=== PATIENT | male | born 2000 | race Caucasian/White ===

== ENCOUNTER 2021-08-03 06:28 | Observation (INO) | payer SELFPAY ==
[2021-08-03] VITALS (23 sets, daily range): BP systolic 115–140; BP diastolic 60–90; PULSE 52–88; RESP 12–20; TEMP 36.3–36.9; O2SAT 96–100; BMI 22.9
--- NOTE | 2021-08-03 06:54 | CTR_ITS ---
PROCEDURE INFORMATION: Exam: CT Abdomen And Pelvis With Contrast Exam date and time: 08/03/2021 7:23 AM Age: 21 years old Clinical indication: Abdominal pain; Localized; Lower; Additional info: Abd pain TECHNIQUE: Imaging protocol: Computed tomography of the abdomen and pelvis with contrast. Radiation optimization: All CT scans at this facility use at least one of these dose optimization techniques: automated exposure control; mA and/or kV adjustment per patient size (includes targeted exams where dose is matched to clinical indication); or iterative reconstruction. Contrast material: OMNI 350; Contrast volume: 75 ml; Contrast route: INTRAVENOUS (IV); COMPARISON: CT abdomen pelvis w con* [id number] 07/29/2018 9:59 PM RADIATION DOSE METRICS: Total DLP (mGy-cm): 717.93 FINDINGS: Lungs: No acute airspace or pleural disease. Liver: No focal hepatic mass. Gallbladder and bile ducts: Unremarkable gallbladder. Pancreas: No pancreatic mass or ductal dilatation. Spleen: Spleen upper limits of normal size. Adrenal glands: Unremarkable adrenals. Kidneys and ureters: Normal renal morphology. No hydronephrosis. Stomach and bowel: Mild small bowel dilatation without a transition zone. Prominent stool. Appendix: Enlarged appendix measuring 12 mm in diameter with wall thickening and mild infiltration of periappendiceal fat, in a pattern of appendicitis. Intraperitoneal space: No significant free fluid. Vasculature: Normal caliber of the abdominal aorta. Mild IVC dilatation. Lymph nodes: Subcentimeter lymph nodes. Urinary bladder: Circumferential bladder wall thickening. Reproductive: Unremarkable as visualized. Bones/joints: L5 spondylolysis and grade 1 anterolisthesis of L5 on S1. Soft tissues: Infiltration of subcutaneous fat about the umbilicus. CT/CT abdomen pelvis w con* [id number] IMPRESSION: 1. Enlarged appendix measuring 12 mm in diameter with wall thickening and mild infiltration of periappendiceal fat, in a pattern of appendicitis. 2. Circumferential bladder wall thickening. 3. Additional findings as described above. The aforementioned findings initiated a critical results communication pathway. An addendum will be issued at the time of clincian notification.
--- NOTE | 2021-08-03 06:54 | ED_ITS ---
HPI - Abdominal Pain General: Chief Complaint: Abdominal Pain Stated Complaint: abdomen pain Time Seen by Provider: 08/03/21 06:34 Source: patient Mode of arrival: EMS History of Present Illness: 21-year-old male presents emergency room with abdominal pain. He describes the events as last night around midnight he was sitting with some friends watching television and he began to have abdominal discomfort so he started walking home. Evidently he never actually made it home and was picked up this morning around 6:15 AM by EMS. On arrival here he is complaining of abdominal pain that he had all night while he was walking became progressively worse. Reports the pain to be periumbilical and radiating into the lower portion of the abdomen. He vomited x1 he denies any medic easy melena hematemesis cough cramps denies any dysuria urgency or frequency. Patient denies any drug MD elicited complaint: abdominal pain Pertinent past history: none Onset (ago): hour(s) (6) Pain Consistency: constant and colicky Location: Periumbilical Severity: mild Quality: cramping Migration to: RLQ Exacerbating factors: nothing Relieving factors: nothing Associated Symptoms: Reports GI cramping, nausea, poor appetite and vomiting (X1); Denies anorexia, belching, bloating, change in bowel habits, change in stool character, chills, coffee ground emesis, constipation, diarrhea, dyspepsia, dysuria, excessive flatus, fever(s), heartburn, hematochezia, hematuria, hematemesis, fecal incontinence, loose stools, melena and syncope Review of Systems Const: Denies: fever(s), chills, fatigue or malaise ENMT: Denies: throat pain, ear or mastoid pain, nasal discharge or nasal congestion Card: Denies: chest pain, palpitations or syncope Resp: Denies: dyspnea, productive cough or non-productive cough GI: Reports: abdominal pain, nausea, vomiting (X1) and GI cramping; Denies: hematemesis, coffee ground emesis, heartburn, diarrhea, constipation, bloating, belching, excessive flatus, fecal incontinence, change in bowel habits, change in stool character, hematochezia or melena : Denies: dysuria or hematuria Skin/Breast: Denies: rash or pruritus PFS ED PFSH: Medical History (Updated 08/03/21 @ 08:41 by Kunal Roberts DO) No significant past medical history Surgical History (Updated 08/03/21 @ 06:59 by Kunal Roberts DO) No history of previous surgery Social History (Updated 08/03/21 @ 06:59 by Kunal Roberts DO) Smoking and tobacco status: current every day smoker Alcohol intake: current Substance/Drug Use: current Substance/Drug use type: Marijuana Physical Exam Const: COMMON NORMALS: no acute distress GENERAL APPEARANCE: cooperative and comfortable ORIENTATION/CONSCIOUSNESS: Yes awake, Yes oriented to person, Yes oriented to place and Yes oriented to time HENMT: COMMON NORMALS: normocephalic, atraumatic and hearing grossly normal bilaterally HEAD & SCALP: normocephalic and atraumatic Neck/C-Spine: COMMON NORMALS: no JVD Resp: COMMON NORMALS: normal respiratory effort, No retractions, No use of accessory muscles and clear to auscultation bilaterally AUSCULTATION: clear t o auscultation bilaterally Cardio: COMMON NORMALS: no JVD, regular rate, regular rhythm and No murmurs present (Cardio) RATE: regular rate RHYTHM: regular rhythm GI: COMMON NORMALS: No hepatosplenomegaly present AUSCULTATION: Yes normoactive bowel sounds PALPATION: Yes Tenderness to palpation present (GI) (Periumbilical and right lower quadrant), No Guarding due to palpation present (GI) and Yes No hepatosplenomegaly present Extremity: COMMON NORMALS: normal to inspection, capillary refill normal, no clubbing, cyanosis or edema, no calf tenderness and no pedal edema Neuro: SENSORIUM/ORIENTATION: Yes oriented to person, Yes oriented to place and Yes oriented to time Skin: COMMON NORMALS: no rashes or lesions noted GENERAL SKIN EXAM: no rashes or lesions noted Course Vital Signs: Vital signs: Vital Signs Pulse Rate 83 08/03/21 08:16 Respiratory Rate 16 08/03/21 08:16 Blood Pressure 118/71 08/03/21 08:16 Pulse Oximetry 97 08/03/21 08:16 MDM - Abdominal Pain Medical Decision Making CT shows acute appendicitis. Will place on observation. Start Zosyn. Discussed with Dr. Salmeron who is on-call for surgery he is planning to do laparoscopic appendectomy possible conversion to open. Patient be admitted to the floor they are planning to do surgery around noon today. Discussed with the patient. Medical Records I reviewed the patient's medical records. Lab Data I reviewed the patient's lab results. : 08/03/21 06:48 08/03/21 06:48 Labs/Radiology: Radiology Impressions Abdomen/Pelvis CT 08/03/21 06:54 IMPRESSION: 1. Enlarged appendix measuring 12 mm in diameter with wall thickening and mild infiltration of periappendiceal fat, in a pattern of appendicitis. 2. Circumferential bladder wall thickening. 3. Additional findings as described above. The aforementioned findings initiated a critical results communication pathway. An addendum will be issued at the time of clincian notification. ADDENDUM: 08/03/21 0815 THIS REPORT CONTAINS FINDINGS THAT MAY BE CRITICAL TO PATIENT CARE. The findings were verbally communicated via telephone conference with KUNAL Huerta at 8:14 AM CDT on 08/03/2021. The findings were acknowledged and understood. Laboratory Results WBC 12.1 10^3/uL (4.0-10.0) H 08/03/21 06:48 RBC 4.81 10^6/uL (4.1-5.3) 08/03/21 06:48 Hgb 14.2 g/dL (11.7-16.6) 08/03/21 06:48 Hct 40.1 % (42.0-52.0) L 08/03/21 06:48 MCV 83.4 fl (80-94) 08/03/21 06:48 MCH 29.5 pg (28.0-34.0) 08/03/21 06:48 MCHC 35.4 g/dL (30.0-36.0) 08/03/21 06:48 RDW 11.9 % (12.1-15.1) L 08/03/21 06:48 Plt Count 289 10^3/cmm (130-400) 08/03/21 06:48 MPV 8.8 fL (7.4-10.4) 08/03/21 06:48 Neut % (Auto) 87.9 % 08/03/21 06:48 Lymph % (Auto) 5.9 % 08/03/21 06:48 [place] % (Auto) 5.4 % 08/03/21 06:48 Eos % (Auto) 0.2 % 08/03/21 06:48 Baso % (Auto) 0.3 % 08/03/21 06:48 Neut # (Auto) 10.62 10^3/uL (1.8-7.7) H 08/03/21 06:48 Lymph # (Auto) 0.7 10^3/uL (0.8-4.8) L 08/03/21 06:48 [place] # (Auto) 0.7 10^3/uL (0.2-0.9) 08/03/21 06:48 Eos # (Auto) 0.0 10^3/uL (0.0-0.8) 08/03/21 06:48 Baso # (Auto) 0.0 10^3/uL (0.0-0.1) 08/03/21 06:48 Nucleated RBC % (auto) 0 % 08/03/21 06:48 Nucleated RBCs # 0.0 /100WBC 08/03/21 06:48 Sodium 132 mmol/L (136-145) L 08/03/21 06:48 Potassium 3.9 mmol/L (3.5-5.1) 08/03/21 06:48 Chloride 100 mmol/L (98-107) 08/03/21 06:48 Carbon Dioxide 24 mmol/L (22-29) 08/03/21 06:48 Anion Gap 11.9 (5-19) 08/03/21 06:48 BUN 7 mg/dL (6-20) 08/03/21 06:48 Creatinine 0.8 mg/dL (0.7-1.2) 08/03/21 06:48 GFR Calculation 122.0 mL/min (90-130) 08/03/21 06:48 Glucose 113 mg/dL (65-115) 08/03/21 06:48 Calculated Osmolality 273 mOsm/kg (285-295) L 08/03/21 06:48 Calcium 9.6 mg/dL (8.5-10.5) 08/03/21 06:48 Total Bilirubin 0.8 mg/dL (0.15-1.2) 08/03/21 06:48 AST 14 U/L (0-40) 08/03/21 06:48 ALT 9 U/L (0-41) 08/03/21 06:48 Alkaline Phosphatase 47 IU/L (40-130) 08/03/21 06:48 Total Protein 7.7 g/dL (6.6-8.7) 08/03/21 06:48 Albumin 4.7 g/dL (3.5-5.2) 08/03/21 06:48 Globulin 3.0 g/dL (1.3-4.6) 08/03/21 06:48 Discharge Plan Discharge Patient Disposition: Placed in Observation Clinical Impression: Acute appendicitis Prescriptions: No Action Tylenol Ex Str Rapid Release 500 mg Tablet 1,000 mg PO Q4H PRN (Reason: Pain) 0RF Referrals: Destin Wright Jr, MD [Primary Care Provider] - Coding Level of Care Code ED Lead Carg[place] for Chg Fwd Exam Comprehensive
[2021-08-03 06:58] LABS: Basophils % 0.3 %; Eosinophils % 0.2 %; Hematocrit 40.1 % (42.0-52.0); Hemoglobin 14.2 g/dL (11.7-16.6); Lymphocytes # 0.7 10^3/uL (0.8-4.8); Lymphocytes % 5.9 %; Mean Corpuscular HGB Conc 35.4 g/dL (30.0-36.0); Mean Corpuscular Hemoglobin 29.5 pg (28.0-34.0); Mean Corpuscular Volume 83.4 fl (80-94); Mean Platelet Volume 8.8 fL (7.4-10.4); Monocytes # 0.7 10^3/uL (0.2-0.9); Monocytes % 5.4 %; Neutrophils # 10.62 10^3/uL (1.8-7.7); Neutrophils % 87.9 %; Nucleated Red Blood Cells % 0 %; Platelet Count 289 10^3/cmm (130-400); Red Blood Count 4.81 10^6/uL (4.1-5.3); Red Cell Distribution Width 11.9 % (12.1-15.1); White Blood Count 12.1 10^3/uL (4.0-10.0)
[2021-08-03] MEDS: iohexol 350 mg/mL 100 mL Btl IV (07:11)
[2021-08-03 07:18] LABS: Alanine Aminotransferase 9 U/L (0-41); Albumin Level 4.7 g/dL (3.5-5.2); Alkaline Phosphatase 47 IU/L (40-130); Anion Gap 11.9 (5-19); Aspartate Amino Transferase 14 U/L (0-40); Blood Urea Nitrogen 7 mg/dL (6-20); Calcium 9.6 mg/dL (8.5-10.5); Carbon Dioxide 24 mmol/L (22-29); Chloride 100 mmol/L (98-107); Creatinine Clr Calc Pharmacy 150.4648; Glucose 113 mg/dL (65-115); Osmolality Calculated 273 mOsm/kg (285-295); Potassium 3.9 mmol/L (3.5-5.1); Sodium 132 mmol/L (136-145); Total Bilirubin 0.8 mg/dL (0.15-1.2); Total Protein 7.7 g/dL (6.6-8.7)
[2021-08-03 08:40] LABS: Add Urine Microscopic? NO; Charge for UA Resulting for Rev
[2021-08-03] MEDS: sodium chloride 0.9% 1,000 ML 999 ML IV (08:43)
[2021-08-03] MEDS: ondansetron 2 mg/ML SDV 2 mL 4 MG IVP (08:45)
[2021-08-03] MEDS: morphine 4 mg/mL SDV 1 mL IVP (08:45)
[2021-08-03] MEDS: piperacillin-tazobactam 3.375 GM in sodium chloride 0.9% (plus) 50 ML IV ×3 (08:47→21:03)
--- NOTE | 2021-08-03 08:48 | ANES.PREANE2 ---
Pre-Anesthetic Assessment Height/Weight: Height 1.78 m Weight 72.575 kg Pulse Resp BP Pulse Ox 83 16 118/71 97 08/03/21 08:16 08/03/21 08:16 08/03/21 08:16 08/03/21 08:16 Operation Date: 08/03/21 12:00 Proposed Procedures p Laparoscopic Appendectomy(Not Applicable) - Oscar Salmeron MD Familial anesthetic complications: None Was Beta Shelly taken within 24 hours: N/A Was Clonidine taken within 24 hours: N/A Last intake: 08/02/2021 last drink and meal Last emesis 0300 08/03/21 Social Tobacco and No alcohol Exam alert, oriented x 3, clear to auscultation bilaterally and regular rate & rhythm Airway Submandibular: within normal limits Cervical ROM: within normal limits Mallampati: Class I Dentition: chipped (Multiple chipped teeth including both upper central incisors. ) History/ROS No significant complaints Pulmonary None reported CV/HEM None reported None reported Hepatic None reported GI None reported Acute appendicitis Metabolic None reported Musc/skel None reported Neuropsych None reported Anesthetic Plan ASA status: 2 Anesthesia: Anesthesia Evaluation and General Other: We discussed risk and benefits of general anesthesia including PONV, sore throat (sometimes severe), corneal abrasion, positioning and peripheral nerve injuries, life threatening allergic reaction, post operative ICU admission requiring prolonged intubation, stroke, heart attack, , and rare incidences of recall. Patient consents to proceed with general anesthesia. Risk of > 500 ml blood loss (7ml/kg in children): No Medications/Allergies Home Medications Medication Instructions Recorded Confirmed Last Taken Type acetaminophen 500 mg tablet 1,000 mg PO Q4H PRN 08/03/21 08/03/21 08/03/21 02:00 History Allergies Allergy/AdvReac Type Severity Reaction Status Date / Time No Known Allergies Allergy Verified 08/03/21 08:38 Current Medications Generic Name Dose Route Start Last Admin Trade Name Freq PRN Reason Stop Dose Admin Sodium Chloride 1,000 mls @ 999 mls/hr 08/03/21 08:35 08/03/21 08:43 Sodium Chloride 0.9% IV 08/03/21 09:35 999 mls/hr .Q1H1M ONE Administration Piperacillin Sod/Tazobactam 50 mls @ 100 mls/hr 08/03/21 08:35 08/03/21 08:47 Sod 3.375 gm/ Sodium Chloride IV 08/03/21 09:04 100 mls/hr ONCE ONE Administration Protocol [facility] Anesthesia Medical History No significant past medical history Surgical History No history of previous surgery Social History Smoking and tobacco status: current every day smoker Alcohol intake: current Substance/Drug Use: current Substance/Drug use type: Marijuana Data Anesthesia : 08/03/21 06:48 08/03/21 06:48 Short CBC 08/03/21 Range/Units 06:48 WBC 12.1 H (4.0-10.0) 10^3/uL Hgb 14.2 (11.7-16.6) g/dL Hct 40.1 L (42.0-52.0) % MCV 83.4 (80-94) fl Plt Count 289 (130-400) 10^3/cmm Neut % (Auto) 87.9 % Neut # (Auto) 10.62 H (1.8-7.7) 10^3/uL BMP 08/03/21 06:48 Sodium 132 L Potassium 3.9 Chloride 100 Carbon Dioxide 24 BUN 7 Creatinine 0.8 Glucose 113 Calcium 9.6 Liver Function 08/03/21 Range/Units 06:48 Total Bilirubin 0.8 (0.15-1.2) mg/dL AST 14 (0-40) U/L ALT 9 (0-41) U/L Alkaline Phosphatase 47 (40-130) IU/L Albumin 4.7 (3.5-5.2) g/dL Cardiac Studies: No Data to Display
[2021-08-03 09:03] LABS: Bilirubin Urine Neg (Negative); Blood Urine Neg (Negative); Glucose Urine UA Norm (Normal); Ketones Urine Negative (Negative); Leukocyte Esterase Urine Negative (Negative); Nitrate Urine Negative (Negative); Protein Urine Neg (Negative); Urine Appearance Clear (CLEAR); Urine Color Yellow (Yellow); Urobilinogen Urine Norm (Negative); pH Urine 5 (5-7)
--- NOTE | 2021-08-03 09:09 | P.CONIM_ITS ---
Providers/Reason For Consult Consulting Physician/Specialty*: Oscar Salmeron MD Reason for Consult*: Acute appendicitis Requesting Physician: Dr. Roberts Attending Physician: Oscar Salmeron MD Primary Care Provider: Destin Wright Jr, MD History of Present Illness History of Present Illness Mr. Darius Irene is a 21 year old male presents to the emergency department with history of abdominal pain that started yesterday at around midnight. Pain started in the periumbilical and started radiating to the right lower side of the abdomen, patient reported vomitus x1 and denies any other constitutional symptoms nothing seems to make it better or worse and it is being crampy in nature and not being referred. Patient is otherwise healthy. Further work-up in the ER showed leukocytosis of 12.1 and hemoglobin of 14.2, platelets 289, sodium 132, potassium 3.[address] A [address] of the abdomen pelvis was done that showed. 1.Enlarged appendix measuring 12 mm in diameter with wall thickening and mild infiltration of periappendiceal fat, in a pattern of appendicitis. 2. Circumferential bladder wall thickening. 3. Additional findings as described above. General surgery was consulted for further evaluation and care Review of Systems General: Reports: 10 or more systems reviewed and unremarkable except in HPI a nd below Medications/Allergies Home Medications Medication Instructions Recorded Confirmed Last Taken Type acetaminophen 500 mg tablet 1,000 mg PO Q4H PRN 08/03/21 08/03/21 08/03/21 02:00 History Allergies Allergy/AdvReac Type Severity Reaction Status Date / Time No Known Allergies Allergy Verified 08/03/21 12:16 Current Medications Generic Name Dose Route Start Last Admin Trade Name Freq PRN Reason Stop Dose Admin Sodium Chloride 1,000 mls @ 999 mls/hr 08/03/21 08:35 08/03/21 08:43 Sodium Chloride 0.9% IV 08/03/21 09:35 999 mls/hr .Q1H1M ONE Administration PFSH Acute PFSH: Medical History No significant past medical history Surgical History No history of previous surgery Social History Smoking and tobacco status: current every day smoker Alcohol intake: current Substance/Drug Use: current Substance/Drug use type: Marijuana Vitals/I&O/Wt Last Vital Signs Pulse 83 08/03/21 08:16 Resp 16 08/03/21 08:16 BP 118/71 08/03/21 08:16 Pulse Ox 97 08/03/21 08:16 Weight last 48 hrs Weight 160 lb Physical Exam Const: COMMON NORMALS: no acute distress and patient oriented x3 GENERAL APPEARANCE: cooperative ORIENTATION/CONSCIOUSNESS: Yes awake, Yes oriented to person, Yes oriented to place and Yes oriented to time HENMT: COMMON NORMALS: normocephalic HEAD & SCALP: normocephalic Eye: COMMON NORMALS: Equal, round and reactive pupils present and no scleral icterus PUPIL: Yes Equal, round and reactive pupils present Lymph: LYMPHATIC: no lymphadenopathy noted Chest: COMMONS NORMALS: normal inspection of the chest Resp: COMMON NORMALS: normal respiratory effort and clear to auscultation bilaterally AUSCULTATION: clear to auscultation bilaterally Cardio: COMMON NORMALS: S1 normal heart sound present and S2 normal heart sound present; negative for No murmurs present (Cardio) HEART SOUNDS: S1 normal heart sound present and S2 normal heart sound present GI: COMMON NORMALS: Soft to palpation; negative for No hepatosplenomegaly present INSPECTION: Yes normal to inspection PALPATION: Yes Soft to palpation, No Firmness to palpation present (GI), Yes Tenderness to palpation present (GI) Details: RLQ (At McBurney's point), No Guarding due to palpation present (GI), Yes Rigid due to palpation (Localized rigidity) and No No hepatosplenomegaly present Neuro: COMMON NORMALS: patient oriented x3 SENSORIUM/ORIENTATION: Yes oriented to person, Yes oriented to place and Yes oriented to time Psych: COMMON NORMALS: mental status grossly normal Skin: COMMON NORMALS: no rashes or lesions noted GENERAL SKIN EXAM: no rashes or lesions noted Data : 08/03/21 06:48 08/03/21 06:48 A&P Assessment and plan (1) Acute appendicitis: After thorough history physical examination and reviewing the chart and images with my personal interpretion, I counseled the patient for laparoscopic appendectomy possible open. Indications, risks, benefits and alternatives were all discussed with the patient and did agree to proceed. Rationale was carefully and clearly discussed with the patient.Appropriate informed consent have been reviewed and signed Status: Acute Consult Attestations Medical Necessity Statement: Observation status for perioperative care Coding Level of Care Code Acute Masking Machine Feeder for [facility] Fwd Diagnoses Acute appendicitis K35.80
[2021-08-03] MEDS: D5-NS 0.45% + KCL 20 mEq 20 MEQ/1,000 ML BAG 125 MEQ IV (10:01)
[2021-08-03] MEDS: sodium chloride 0.9% 1,000 ML 30 ML IV (11:14)
[2021-08-03] MEDS: acetaminophen 1,000 MG/100 ML PIGGYBACK 400 MG IV (11:15)
--- NOTE | 2021-08-03 13:19 | PM.OP ---
Operative Report Date of procedure: August 03, 2021 Pre-op diagnosis: Preop Diagnosis Acute appendicitis Post-op findings: Acute appendicitis with suppuration Procedure done: Laparoscopic appendectomy Specimens removed/disposition: Appendix Surgeon: Oscar Salmeron MD Vice President Compliance: Surgical techs Meagan Gerber and surgical product sales consultant student Jazmyn Circulating nurse Lauren Anesthesia: General ([employer] STER[employer] TECHNICIAN Jay) Estimated blood loss (mL): 15 IV fluids (mL): 500 Procedure: Patient after being identified in the holding area and asked to void urine, and informed consent per chart ,patient was then taken back to the OR placed in supine position got intubated by anesthesia left arm was tucked tucked ,Timeout was done verifying the patient's name/date of /planned procedure and destination after the procedure, all were in agreement., preoperative antibiotics administered per protocol. prep and drape of the abdomen was done under the usual sterile technique. Started by longitudinal skin incision supraumbilical using a Álvarez trocar technique safe entry to the abdominal cavity was achieved verified by using 10 mm zero degree laparoscopy, switched to a 30? scope under direct visualization a suprapubic 5 mm trocar was inserted followed by another 5 mm trocar inserted in the left lower quadrant, I was able to position the patient in an T Grier and left side down, dissection of the retrocecal acutely inflamed appendix with suppuration there was some adhesions towards the lateral pelvic wall that was taken down by sharp and blunt dissection, attention was deviated to the healthy base of the appendix where I had to switch the camera to 5 mm 30? scope got introduced through the left lower quadrant and through the Álvarez trocar under direct visualization a GI stapler 45 mm blue load was applied at the healthy part of the base of the appendix, and an Endoloop PDS was applied onto the mesoappendix for control , the appendix was then retrieved in an Endo Catch bag, final survey was done of the abdomen and pelvis , irrigation with warm saline, and suction was obtained, were mercury fluid like in the pelvis due to reaction from the inflamed appendix. Multiple 5 mm clips were applied onto the mesoappendix as well as the appendectomy staple line and a right lateral pelvic wall for minimal oozing. Final look laparoscopy was done showing no other abnormalities or injuries, all trocars were taken out under direct visualization after the supraumblical trocar site was closed by #1 PDS sutures under direct vision using fascial closure device, the smaller incisions fascia were closed using 3-0 Vicryl followed by by skin closure using 4-0 Monocryl of all trocar site incisions. infiltration of local lidocaine 2% was done to all incision sites.Dry dressing was applied. Count was completed at the end of the procedure for [place] , sponges and instruments Patient tolerated the procedure well and was transferred to the recovery area after extubation. I was present for the whole entire procedure
[2021-08-03] MEDS: meperidine 50 mg/mL INJ 12.5 MG IVP (14:14)
--- NOTE | 2021-08-03 15:06 | ANE.PACU2 ---
Inpatient post-anesthesia follow up: Airway intact: Yes Vital signs: Temperature 98.2 F Pulse Rate 60 Respiratory Rate 18 Blood Pressure 132/76 Pulse Oximetry 96 Oxygen Delivery Me thod Room Air Oxygen Flow Rate 6 Fraction of Inspir ed Oxygen Hydration adequate: Yes Nausea and vomiting: No Pain level: 1 Mental status: Baseline
[2021-08-03] MEDS: sodium chloride 0.9% 1,000 ML 100 ML IV (15:16)
[2021-08-03] MEDS: HYDROcodone-acetaminophen 5-325 mg Tablet 1 TAB PO (20:10)
[2021-08-04] MEDS: sodium chloride 0.9% 1,000 ML 100 ML IV (00:55)
[2021-08-04] MEDS: ondansetron 2 mg/ML SDV 2 mL 4 MG IVP (01:35)
[2021-08-04 03:26] VITALS: BP 116/69; PULSE 52; RESP 14; TEMP 36.6; O2SAT 98
[2021-08-04] MEDS: HYDROcodone-acetaminophen 5-325 mg Tablet 1 TAB PO ×2 (03:38→10:35)
[2021-08-04 04:13] LABS: Basophils % 0.2 %; Hematocrit 39.9 % (42.0-52.0); Hemoglobin 13.9 g/dL (11.7-16.6); Lymphocytes # 0.8 10^3/uL (0.8-4.8); Lymphocytes % 7.8 %; Mean Corpuscular HGB Conc 34.8 g/dL (30.0-36.0); Mean Corpuscular Hemoglobin 29.5 pg (28.0-34.0); Mean Corpuscular Volume 84.7 fl (80-94); Mean Platelet Volume 9.4 fL (7.4-10.4); Monocytes # 0.6 10^3/uL (0.2-0.9); Monocytes % 6.2 %; Neutrophils # 8.86 10^3/uL (1.8-7.7); Neutrophils % 85.4 %; Nucleated Red Blood Cells % 0 %; Platelet Count 308 10^3/cmm (130-400); Red Blood Count 4.71 10^6/uL (4.1-5.3); Red Cell Distribution Width 11.9 % (12.1-15.1); White Blood Count 10.4 10^3/uL (4.0-10.0)
[2021-08-04 04:36] LABS: Anion Gap 16.2 (5-19); Blood Urea Nitrogen 5 mg/dL (6-20); Calcium 9.4 mg/dL (8.5-10.5); Carbon Dioxide 24 mmol/L (22-29); Chloride 100 mmol/L (98-107); Glomerular Filtration Rate 142.4 mL/min (90-130); Glucose 118 mg/dL (65-115); Osmolality Calculated 280 mOsm/kg (285-295); Potassium 4.2 mmol/L (3.5-5.1); Sodium 136 mmol/L (136-145)
[2021-08-04] MEDS: piperacillin-tazobactam 3.375 GM in sodium chloride 0.9% (plus) 50 ML IV (05:30)
[2021-08-04 07:00] VITALS: BP 126/70; PULSE 54; RESP 16; TEMP 36.7; O2SAT 98
--- NOTE | 2021-08-04 07:10 | PC.NURSE ---
Bedside report received from ROSIBEL Quinteros.
--- NOTE | 2021-08-04 09:05 | PM.SDS ---
Short Stay Summary Providers Date of Admit/Discharge: 08/05/21 Attending Provider: Oscar Salmeron MD Primary Care Provider: Destin Wright Jr, MD Chief Complaint: abdomen pain HPI History of Present Illness Darius Irene is a 21 year old male presenting to the ER with worsening abdominal pain and was found to have acute appendicitis on the CT scan. General surgery was consulted for further care. Review of Systems General: Reports: 10 or more systems reviewed and unremarkable except in HPI and below Home Meds/Allergies Home Medications and Allergies Allergies Allergy/AdvReac Type Severity Reaction Status Date / Time No Known Allergies Allergy Verified 08/03/21 12:16 PFSH Acute PFSH: Medical History No significant past medical history Surgical History No history of previous surgery Social History Smoking and tobacco status: current every day smoker Alcohol intake: current Vitals/I&O/Wt Last Vital Signs Temp 98.1 F 08/04/21 07:00 Pulse 54 L 08/04/21 07:00 Resp 16 08/04/21 07:00 BP 126/70 08/04/21 07:00 Pulse Ox 98 08/04/21 07:00 08/03/21 08/04/21 08/04/21 22:59 06:59 14:59 Intake Total 868.5 / 2718.5 1495 / 4213.5 Balance 868.5 / 2703.5 1495 / 4198.5 Weight last 48 hrs Weight 160 lb Physical Exam Narrative: Patient is conscious alert oriented X3 No apparent distress BMI 23 Head and neck examination PERRLA no masses no cervical lymphadenopathy no jaundice Abdomen nontender except mildly at the incision sites. Nondistended soft no organomegaly guarding or rigidity/no signs of peritonitis Extremities no cyanosis no clubbing no edema Hospital Course Admission Diagnoses Acute appendicitis Hospital Course Patient undergone uneventful postoperative course. Tolerated p.o. intake and started passing gas. Continue to have stable vital signs and trending down of leukocytosis. Adequate urine output. Patient continues to be ambulatory without assistance and had appropriate pain control Discharge Summary This is a pleasant 21 years old gentleman presented with acute appendicitis. Undergone uneventful laparoscopic appendectomy. Patient met the appropriate criteria for safe discharge home. SSS Data Data Completed and Pending: Completed Studies During Hospitalization Category Date Time Status CT abdomen pelvis w con* [id number] Stat Cat Scan 08/03/21 06:54 Completed Pending at discharge Category Date Time Status ES surgery / GI i mages Routine Exams 08/03/21 11:24 Taken Basic Metabolic P jaswinder AM [facility] Lab 08/05/21 04:00 Ordered Basic Metabolic P jaswinder AM [facility]S Lab 08/06/21 04:00 Ordered Complete Blood Co unt w/Auto AM LABS Lab 08/05/21 04:00 Ordered Complete Blood Co unt w/Auto AM LABS Lab 08/06/21 04:00 Ordered Pathology: Surgic al [PTH] Routine Pth 08/03/21 13:33 Received Procedures Performed: Operative Report Date of procedure: August 03, 2021 Pre-op diagnosis: Preop Diagnosis ? Acute appendicitis? Post-op findings: Acute appendicitis with suppuration Procedure done: Laparoscopic appendectomy Specimens removed/disposition: Appendix Surgeon: Oscar Salmeron MD Lens Engraver: Surgical techs Meagan Gerber and industrial machine system technician student Jazmyn Circulating nurse Lauren Estimated blood loss (mL): 15 IV fluids (mL): 500 Procedure: Patient after being identified in the holding area and asked to void urine, and informed consent per chart ,patient was then taken back to the OR placed in supine position got intubated by anesthesia left arm was tucked tucked ,Timeout was done verifying the patient's name/date of /planned procedure? and destination after the procedure, all were in agreement., preoperative antibiotics administered per protocol. prep and drape of the abdomen was done under the usual sterile technique. Started by longitudinal skin incision supraumbilical using a Álvarez trocar technique safe entry to the abdominal cavity was achieved verified by using 10 mm zero degree laparoscopy, switched to a 30? scope under direct visualization a? suprapubic 5 mm trocar was inserted followed by another? 5 mm trocar inserted in the left lower quadrant, I was able to position the patient in an T Grier and left side down, dissection of the prececal acutely inflamed appendix there was some adhesions towards the lateral pelvic wall that was taken down by sharp and blunt dissection, attention was deviated to the healthy base of the appendix where I had to switch the camera to 5 mm 30? scope got introduced through the left lower quadrant and through the Álvarez trocar under direct visualization a GI stapler 45 mm blue load was applied at the healthy part of the base of the appendix, and an Endoloop PDS was applied onto the mesoappendix for control , the appendix was then retrieved in an Endo Catch bag, final survey was done of the abdomen and pelvis , irrigation with warm saline, and suction was obtained, were mercury fluid like in the pelvis due to reaction from the inflamed appendix. Multiple 5 mm clips were applied onto the mesoappendix as well as the appendectomy staple line and a right lateral pelvic wall for minimal oozing. Final look laparoscopy was done showing no other abnormalities or injuries, all trocars were taken out under direct visualization after the supraumblical trocar site was closed by #1 PDS sutures under direct vision using fascial closure device ,followed by skin closure using 4-0 Monocryl of all trocar site incisions.? infiltration of local lidocaine 2% was done to all incision sites.Dry dressing was applied. Count was completed at the end of the procedure for [place] , sponges and instruments Patient tolerated the procedure well and was transferred to the recovery area after extubation. I was present for the whole entire procedure Diagnoses at Discharge Discharge Diagnosis (1) Acute appendicitis: Discharge Plan Discharge Patient Disposition: Home Condition: Stable Prescriptions: New hydrocodone-acetaminophen 5-325 mg tablet 1 tab PO Q6H PRN (Reason: pain) Qty: 28 0RF amoxicillin-pot clavulanate 875-125 mg tablet 1 tab PO Q12H 5 Days Qty: 10 0RF Discontinued acetaminophen [Tylenol Ex Str Rapid Release] 500 mg Tablet 1,000 mg PO Q4H PRN (Reason: Pain) 0RF Discharge Orders: Discharge Order (Routine); Ordered 08/04/21 Ordered By: Oscar Salmeron Referrals: Destin Smith DO [Physician] - 08/09/21 3:30 am Oscar Salmeron MD [Physician] - 08/17/21 1:15 pm (Return to surgery office in 10 days) Discharge Diet: Advance as tolerated Discharge Activity: Limit activity as instructed Patient Instructions: Appendicitis (GEN), Laparoscopic Appendectomy (DC), Opioid Safety, Post Anesthesia Care Activity Restrictions/Additional Instructions: 1. Patient can shower after 48 hours from surgery 2. Remove Dermabond 7 to 10 days after surgery, if there is a secondary dressing can take down after 48 hours. 3. Up and walking as tolerated 4. Do not lift more than 5 pounds first 2 weeks after surgery and not more than 25 pounds 6 to 8 weeks after surgery. 5. Do not operate heavy machinery or drive while using pain medications. 6.Contact the office or return to the ER for worsening nausea vomiting fevers or chills, or noticing any redness around incision sites or discharge. Attestations Medical Necessity Statement*: Patient was kept in observation status for perioperative care Time Spent in Patient Care*: greater than 30 min Specific Discharge Activities: Specific discharge activities: educating patient Status at Discharge: Cognitive status at discharge: cognitively intact, Behavioral status at discharge: cooperative, Functional status at discharge: independent ambulation Overall status at discharge: patient is progressing back to baseline Quality Metrics Clinical Quality Measures: [ No reported AMI, CVA or VTE this stay] Coding Level of Care Code Acute Change Of Address Clerk for Louise Valdovinos Diagnoses Acute appendicitis K35.80
[2021-08-04] MEDS: psyllium powder Pkt 1 PACKET PO (09:09)
[2021-08-04 11:00] VITALS: BP 116/66; PULSE 72; RESP 18; TEMP 36.6; O2SAT 98
== END 2021-08-04 14:18 | disposition home or self-care (01) ==
LOC: ER 08:41 → MEDSURG 09:05
PROVIDERS: Admitting Provider Surgery; Emergency Provider Family Medicine; PCP Pediatrics Adolescent Medicine; Visit Provider Surgery
PROC: 0DTJ4ZZ Resection of Appendix, Percutaneous Endoscopic Approach (ICD-10-PCS; CPT 44970; principal; 2021-08-03 12:00)
DX: K35.33 Acute appendicitis with perforation, localized peritonitis, and gangrene, with abscess (principal)
CPT/HCPCS: 44970; 36415; 74177; 80048; 80053; 81003; 85025; 88304; 96365; 96367; 96375; 99285; G0378; J1100; J2175; J2250; J2270; J2405; J2543; J2704; J2710; J3010; J3490; J7030; Q9967